=== PATIENT | female | born 1950 | race Caucasian/White ===

== ENCOUNTER 2019-01-15 14:21 | Emergency (ER) | payer MEDICARE, OTHER ==
[~2019-01-15] VITALS: Ht 152.4 cm; Wt 68.4 kg
[~2019-01-15 14:21] MED LIST: ALBU8.5H8 INH; ARIP2TAB2 PO; BIOT1CAP3 PO; CALC600T23 PO; DOCU-131 PO; FLUO60TA PO; FLUT1DIS3 INH; GABA600T PO; HYDR-3240 PO; IBUP100T6 PO; LEVE750T37 PO; LEVO100T5 PO; LORA-445 PO; MAGN300C PO; MV-M1TAB16 PO; OMEP20CA9 PO; OXYC40TA27 PO; POLY17PO5 PO; POTA20TA6 PO; SIMV20TA3 PO; TIOT18CA INH
--- NOTE | 2019-01-15 14:51 | NUR ---
PT TO ROOM FROM LOBBY AT THIS TIME.
[2019-01-15] MEDS ORDERED: LORazepam 1MG TABLET PO ONE (15:00)
--- NOTE | 2019-01-15 15:22 | NUR ---
PT PRESENTS TO ED WITH REP FROM [place]. PT AT [facility] FOR DEPRESSION, NOT ON LEGAL 2K. PT STATES SHE HAS ANXIETY ABOUT HER CURRENT LIVING SITUATION AND IS SCARED TO BE THERE. [facility] C/O ROLON. HX OF ANXIETY. PT DENIES ANY RECENT FALLS OR TRAUMA. RESTING ON GURNEY. CALL LIGHT IN REACH. SPO2 MONITORS IN PLACE.
[2019-01-15 15:25] LABS: BASOPHILS % (AUTO) 2 % (0-1); EOSINOPHILS # (AUTO) 0.18 x10^3/uL (0-0.4); EOSINOPHILS % (AUTO) 3 % (1-7); LYMPHOCYTES # (AUTO) 1.85 x10^3/uL (1-3.4); LYMPHOCYTES % (AUTO) 31 % (22-44); MD NO; MEAN CORPUSCULAR HEMOGLOBIN 26.1 pg (27.0-34.8); MEAN CORPUSCULAR HGB CONC 31.9 g/dL (32.4-35.8); MEAN PLATELET VOLUME 7.6 fL (7.4-10.4); MONOCYTES # (AUTO) 0.51 x10^3/uL (0.2-0.8); MONOCYTES % (AUTO) 9 % (2-9); NEUTROPHILS # (AUTO) 3.27 x10^3/uL (1.8-6.8); NEUTROPHILS % (AUTO) 55 % (42-75); PLATELET COUNT 317 x10^3/uL (130-400); RED BLOOD COUNT 4.59 x10^6/uL (3.82-5.3); RED CELL DISTRIBUTION WIDTH 16.2 % (9.6-15.2)
[2019-01-15] MEDS ORDERED: LORazepam 1MG TABLET ONE (15:45)
[2019-01-15 15:50] LABS: CHLORIDE 102 mmol/L (98-107)
--- NOTE | 2019-01-15 15:55 | NUR ---
PT TO RESTROOM VIA WHEELCHAIR. PT ANXIOUS AND ALSO C/O ROLON. MEDICATED PER ORDERS FOR ANXIETY AND AWAITING ORDER FOR PAIN MEDICATION.
[2019-01-15] MEDS ORDERED: OXYcodone/APAP 10/325MG TABLET ONE (16:06)
[2019-01-15 16:08] LABS: ANION GAP 4 mmol/L (5-15); CALCIUM 9.5 mg/dL (8.5-10.1); CREATININE 0.94 mg/dL (0.55-1.02)
--- NOTE | 2019-01-15 16:08 | NUR ---
PT MEDICATED FOR PAIN PER MAR.
[2019-01-15] MEDS ORDERED: OXYcodone/APAP 10/325MG TABLET PO ONE (16:30)
[2019-01-15 17:13] VITALS: BP 134/77
== END 2019-01-15 17:16 | disposition home or self-care (01) ==
LOC: ED 17:05
DX: F41.1 Generalized anxiety disorder (principal); G89.29 Other chronic pain; J44.9 Chronic obstructive pulmonary disease, unspecified; E78.5 Hyperlipidemia, unspecified; F32.9 Major depressive disorder, single episode, unspecified; Z90.49 Acquired absence of other specified parts of digestive tract; Z90.710 Acquired absence of both cervix and uterus
CPT/HCPCS: 36415; 80048; 85025; 93005; 99284